=== PATIENT | female | born 1985 | race Caucasian/White ===

== ENCOUNTER 2018-09-18 14:03 | Emergency (ER) | payer OTHER ==
[~2018-09-18 14:03] MED LIST: ISOVUE-370 76%-LOCM 1 ML ONE
[2018-09-18 15:16] LABS: Bilirubin Negative (Negative); Blood, Urine Negative (Negative); Clarity Clear (Clear); Glucose, Urine (Dipstick) Normal (Negative); Leukocyte 250 Leu/uL (Negative); Nitrite Negative (Negative); Protein, Urine (Dipstick) 20 mg/dL (Neg-Trace); Urobilinogen Normal mg/dL (Less than 2)
[2018-09-18 15:26] LABS: Bacteria/HPF 1+ HPF (None Seen)
[2018-09-18 15:44] LABS: Pregnancy Test - Urine (BHCG) Negative (Negative); Pregu Control Background? CLEAR/WHITE (CLR/WHITE); Pregu Control Bar Appear? YES (CONTROL BAR); Specific Gravity 1.029 (1.002-1.036)
[2018-09-18] MEDS ORDERED: Ondansetron PF 4 MG/2 ML Vial ONE (15:50)
[2018-09-18 15:57] LABS: #Lymphocytes 1.4 thou/uL (1.20-3.40); #Monocytes 0.4 thou/uL (0.11-0.59); %Basophils 0.3 % (0.0-1.0); %Eosinophils 0.8 % (0.0-10.0); %Lymphocytes 29.2 % (21.0-51.0); %Monocytes 7.9 % (0.0-10.0); %Neutrophils 61.8 % (42.0-75.0); Hemoglobin 11.7 g/dL (12.0-16.0); Mean Corpuscular HGB CONC 34.2 g/dL (32.0-36.0); Mean Corpuscular Hemoglobin 33.2 pg (27.0-31.0); Mean Platelet Volume 7.1 fL (7.4-10.4); Platelet Count 287 thou/uL (130-400); RBC Distribution Width 11.2 % (11.5-14.5); Red Blood Cell (RBC) Count 3.54 mill/uL (4.20-5.40); White Blood Cell (WBC) Count 4.8 thou/uL (4.8-10.8)
[2018-09-18 16:20] LABS: ALT (SGPT) 10 U/L (8-55); AST (SGOT) 19 U/L (5-34); Albumin 4.3 g/dL (3.5-5.0); Alkaline Phosphatase 50 U/L (40-150); Anion Gap 13 mmol/L (10-20); BUN (Urea Nitrogen) 19 mg/dL (7.0-18.7); Bilirubin, Total 0.3 mg/dL (0.2-1.2); Calc. Creatinine Clearance 0 mL/min (70-130); Calcium 9.4 mg/dL (7.8-10.44); Carbon Dioxide 24 mmol/L (22-29); Chloride 104 mmol/L (98-107); Estimated GFR-MDRD 78; Globulin 2.9 g/dL (2.4-3.5); Glucose 150 mg/dL (70-105); Potassium 4.1 mmol/L (3.5-5.1); Protein, Total 7.2 g/dL (6.0-8.3); Sodium 137 mmol/L (136-145)
[2018-09-18] MEDS ORDERED: diphenhydrAMINE 50 MG/ML VIAL ONE (17:13)
--- NOTE | 2018-09-18 17:29 | CT ---
CT ABDOMEN AND PELVIS WITH CONTRAST: HISTORY: Abdominal pain with nausea, diarrhea, and a decreased appetite for three days. COMPARISON: None. TECHNIQUE: Multiple contiguous axial images were obtained in a CT of the abdomen and pelvis with contrast. Janis nal reformats were performed. FINDINGS: The patient is status post cholecystectomy. The liver, kidneys, adrenal glands, spleen, and pancreas are unremarkable. No free air, free fluid, or stranding changes are seen in the abdomen or pelvis. The large and small bowel are unremarkable. The reproductive organs are unremarkable. The appendix is normal. No abdominal or pelvic lymphadenopathy is seen. The osseous structures, the visualized inferior thorax, and the abdominal wall soft tissues are unrem arkable. IMPRESSION: No evidence of acute intraabdominal/pelvic abnormality. POS: [facility]
== END 2018-09-18 18:51 | disposition home or self-care (01) ==
LOC: ERS 14:03
DX: R10.31 Right lower quadrant pain (principal); R10.32 Left lower quadrant pain; R19.7 Diarrhea, unspecified; R11.0 Nausea; E10.9 Type 1 diabetes mellitus without complications; G43.909 Migraine, unspecified, not intractable, without status migrainosus; F41.9 Anxiety disorder, unspecified; Z79.899 Other long term (current) drug therapy; Z79.4 Long term (current) use of insulin
CPT/HCPCS: 74177; 80053; 81003; 81015; 81025; 84443; 85025; 96361; 96365; 96372; 96375; J0500; J0780; J1200; J2405; J3490; Q9966

== ENCOUNTER 2019-01-01 15:50 | Emergency (ER) | payer OTHER ==
--- NOTE | 2019-01-01 16:21 | RAD ---
XR Hand Rt 3 View STANDARD: 01/01/2019 3:57 PM CLINICAL INDICATION: Blunt trauma to right hand while moving equipment. COMPARISON: None. FINDINGS: Bones: No acute osseous abnormality. Joints: Joint spaces are preserved. Soft Tissue: Soft tissues are normal appearing. IMPRESSION: No acute osseous abnormality..
== END 2019-01-01 16:37 | disposition home or self-care (01) ==
LOC: ERS 15:50
DX: S60.221A Contusion of right hand, initial encounter (principal); E10.9 Type 1 diabetes mellitus without complications; F41.9 Anxiety disorder, unspecified; Z79.899 Other long term (current) drug therapy; W22.8XXA Striking against or struck by other objects, initial encounter

== ENCOUNTER 2019-02-03 11:48 | Emergency (ER) | payer OTHER, SELFPAY ==
[~2019-02-03 11:48] MED LIST changes: -ISOVUE-370 76%-LOCM 1 ML ONE; +Iopamidol 370 76% 50 ML VIAL FS ONE; +Iopamidol-370 76% 500 ML 1 ML ONE
[2019-02-03] MEDS ORDERED: Ondansetron ODT 4 MG TAB ONE (11:54)
[2019-02-03 13:14] LABS: Bacteria/HPF 2+ HPF (None Seen); Bilirubin Negative (Negative); Blood, Urine Negative (Negative); Clarity Clear (Clear); Glucose, Urine (Dipstick) Normal (Negative); Leukocyte 75 Leu/uL (Negative); Mucous/LPF Rare LPF (<2+); Nitrite Negative (Negative); Protein, Urine (Dipstick) Negative (Neg-Trace); RBC/HPF 0-3 HPF (0-3); Urobilinogen Normal mg/dL (Less than 2); WBC/HPF 0-3 HPF (0-3)
[2019-02-03 13:16] LABS: Pregnancy Test - Urine (BHCG) Negative (Negative); Pregu Control Background? CLEAR/WHITE (CLR/WHITE); Pregu Control Bar Appear? YES (CONTROL BAR); Specific Gravity 1.017 (1.002-1.036)
[2019-02-03] MEDS ORDERED: Meclizine HCl 25 MG TAB ONE (13:27)
[2019-02-03 13:31] LABS: #Basophils 0.1 thou/uL (0.0-0.2); #Lymphocytes 1.3 thou/uL (1.20-3.40); #Monocytes 0.3 thou/uL (0.11-0.59); #Neutrophils 6.7 thou/uL (1.40-6.50); %Basophils 0.9 % (0.0-1.0); %Eosinophils 0.6 % (0.0-10.0); %Lymphocytes 15.2 % (21.0-51.0); %Monocytes 3.5 % (0.0-10.0); %Neutrophils 79.8 % (42.0-75.0); Mean Corpuscular HGB CONC 34.4 g/dL (32.0-36.0); Mean Corpuscular Hemoglobin 32.1 pg (27.0-31.0); Mean Corpuscular Volume 93.2 fL (78.0-98.0); Mean Platelet Volume 6.4 fL (7.4-10.4); Platelet Count 334 thou/uL (130-400); Red Blood Cell (RBC) Count 4.35 mill/uL (4.20-5.40); White Blood Cell (WBC) Count 8.4 thou/uL (4.8-10.8)
[2019-02-03 13:52] LABS: ALT (SGPT) 12 U/L (8-55); AST (SGOT) 18 U/L (5-34); Alkaline Phosphatase 62 U/L (40-110); Anion Gap 13 mmol/L (10-20); BUN (Urea Nitrogen) 16 mg/dL (7.0-18.7); Bilirubin, Total 0.8 mg/dL (0.2-1.2); Calc. Creatinine Clearance 0 mL/min (70-130); Calcium 9.9 mg/dL (7.8-10.44); Carbon Dioxide 26 mmol/L (22-29); Chloride 101 mmol/L (98-107); Estimated GFR-MDRD 84; Globulin 3.4 g/dL (2.4-3.5); Glucose 86 mg/dL (70-105); Lipase 32 U/L (8-78); Protein, Total 8.4 g/dL (6.0-8.3); Sodium 136 mmol/L (136-145)
[2019-02-03] MEDS ORDERED: Hydrocortisone Sod Succ/PF 100 mg/2 ml Vial ONE (14:07)
--- NOTE | 2019-02-03 14:46 | CT ---
CT ABDOMEN AND PELVIS WITH ORAL AND IV CONTRAST: HISTORY: Sharp left-sided abdominal pain. COMPARISON: 09/18/2018. FINDINGS: The lung bases are clear. The patient is post cholecystectomy. The liver, spleen, pancreas, adrenal glands, and kidneys are normal. No free air, free fluid, or lymphadenopathy is seen in the abdomen o r pelvis. The small bowel loops are not abnormally dilated. A normal-appearing appendix is seen. U terus and ovaries are present. There is mild sigmoid diverticulosis. IMPRESSION: No evidence of acute process. POS: [facility]
== END 2019-02-03 16:33 | disposition home or self-care (01) ==
LOC: ERS 11:48
DX: R10.9 Unspecified abdominal pain (principal); R11.2 Nausea with vomiting, unspecified; E11.9 Type 2 diabetes mellitus without complications; G43.909 Migraine, unspecified, not intractable, without status migrainosus; F41.9 Anxiety disorder, unspecified; Z79.4 Long term (current) use of insulin; Z79.899 Other long term (current) drug therapy
CPT/HCPCS: 74177; 80053; 81003; 81015; 81025; 83690; 85025; 96360; 96361; J1720; J8597; Q0162; Q9967

== ENCOUNTER 2019-03-04 11:59 | Outpatient (CLI) | payer OTHER ==
--- NOTE | 2019-03-04 12:23 | RAD ---
2 views of the lumbar spine: 03/04/2019 COMPARISON: None HISTORY: Diarrhea, low back pain, right upper quadrant pain FINDINGS: Clips are noted in the right upper quadrant. Suture line overlies the medial aspect of the right lower quadrant. 5 lumbar type vertebral bodies are present with intact pedicles on frontal imaging. Lateral exam demo nstrates normal vertebral body height and alignment. No acute osseous abnormality. IMPRESSION: No acute osseous abnormality.
== END 2019-03-04 12:00 | disposition home or self-care (01) ==
LOC: BICRAD 11:59
PROVIDERS: ATTEND Family Medicine
DX: M54.5 Low back pain (principal)
CPT/HCPCS: 72100

== ENCOUNTER 2019-03-13 10:15 | Day surgery (SDC) | payer OTHER ==
[2019-03-12 13:14] VITALS: BMI 24.2
[~2019-03-13 10:15] MED LIST changes: -Iopamidol 370 76% 50 ML VIAL FS ONE; -Iopamidol-370 76% 500 ML 1 ML ONE; +PROPOFOL 200 MG/20 ML VIAL ONE
[2019-03-13] MEDS ORDERED: Ketorolac Tromethamine 30 MG/ML VIAL ONE (13:34)
[2019-03-13 14:18] LABS: #Eosinphils 0.1 thou/uL (0.0-0.7); #Lymphocytes 2.6 thou/uL (1.20-3.40); #Monocytes 0.5 thou/uL (0.11-0.59); #Neutrophils 3.3 thou/uL (1.40-6.50); %Basophils 0.2 % (0.0-1.0); %Eosinophils 0.9 % (0.0-10.0); %Monocytes 7.1 % (0.0-10.0); %Neutrophils 51.8 % (42.0-75.0); Hemoglobin 12.8 g/dL (12.0-16.0); Mean Corpuscular HGB CONC 33.7 g/dL (32.0-36.0); Mean Corpuscular Hemoglobin 31.6 pg (27.0-31.0); Mean Corpuscular Volume 93.9 fL (78.0-98.0); Mean Platelet Volume 7.2 fL (7.4-10.4); Platelet Count 267 thou/uL (130-400); RBC Distribution Width 11.3 % (11.5-14.5); Red Blood Cell (RBC) Count 4.05 mill/uL (4.20-5.40); White Blood Cell (WBC) Count 6.4 thou/uL (4.8-10.8)
[2019-03-13 14:47] LABS: ALT (SGPT) 11 U/L (8-55); AST (SGOT) 16 U/L (5-34); Alkaline Phosphatase 41 U/L (40-110); Anion Gap 12 mmol/L (10-20); BUN (Urea Nitrogen) 11 mg/dL (7.0-18.7); Bilirubin, Total 0.4 mg/dL (0.2-1.2); Calc. Creatinine Clearance 111 mL/min (70-130); Calcium 8.8 mg/dL (7.8-10.44); Carbon Dioxide 28 mmol/L (22-29); Chloride 102 mmol/L (98-107); Estimated GFR-MDRD 86; Globulin 2.9 g/dL (2.4-3.5); Glucose 86 mg/dL (70-105); Lipase 31 U/L (8-78); Potassium 3.8 mmol/L (3.5-5.1); Protein, Total 6.9 g/dL (6.0-8.3); Sodium 138 mmol/L (136-145)
--- NOTE | 2019-03-13 16:38 | OP ---
DATE OF PROCEDURE: 03/13/2019 PROCEDURES PERFORMED: 1. Esophagogastroduodenoscopy. 2. Ileocolonoscopy. PREMEDICATION: Given by Anesthesiology Department. PREPROCEDURE DIAGNOSES: 1. Severe right-sided abdominal pain, negative CT. 2. Recurrent nausea, vomiting, and a history of diarrhea. POSTPROCEDURE DIAGNOSES: 1. Normal upper endoscopy with changes of duodenojejunostomy. 2. Normal ileum and colon exam. DESCRIPTION OF PROCEDURE: Written consents were obtained prior to procedure. After adequate sedation, the forward-viewing endoscope was advanced down the stomach under direct vision. The pylorus was patent. The endoscope was advanced into the duodenal bulb. In the post-bulbar section, an anastomosis was noted with two lumens consistent with prior duodenojejunostomy. Both limbs were explored and appeared normal. The duodenal bulb appeared normal. Pylorus was patent. The gastric antrum, body, fundus, and cardia all appeared normal. Retroflexion did not show any abnormality. The GE junction was located approximately 40 cm from the incisors. The esophagus appeared normal. The patient was then repositioned for colonoscopy. Digital exam performed was normal. Endoscope was advanced to the cecum. The quality of the bowel prep was good. The distal ileum was intubated and appeared normal. The ileocecal valve and appendiceal orifice were visualized, appeared normal. The cecum, ascending colon, hepatic flexure, transverse colon, splenic flexure, descending colon, and rectosigmoid colon all appeared normal. Retroflexion was normal. ASSESSMENT: 1. Status post duodenal jejunostomy, otherwise normal upper endoscopy. 2. Normal ileum in colon exam. PLAN: We will obtain MRCP to evaluate for any choledocholithiasis as the patient has previous cholecystectomy. Job ID: [id number]
== END 2019-03-13 14:34 | disposition home or self-care (01) ==
LOC: SDC 10:15
PROVIDERS: ATTEND Internal Medicine Gastroenterology
PROC: 0DJ08ZZ Inspection of Upper Intestinal Tract, Via Natural or Artificial Opening Endoscopic (ICD-10-PCS; principal; 2019-03-13)
PROC: 0DJD8ZZ Inspection of Lower Intestinal Tract, Via Natural or Artificial Opening Endoscopic (ICD-10-PCS; principal; 2019-03-13)
DX: R10.9 Unspecified abdominal pain (principal); R19.7 Diarrhea, unspecified; R63.4 Abnormal weight loss; R11.2 Nausea with vomiting, unspecified; E11.9 Type 2 diabetes mellitus without complications; E07.9 Disorder of thyroid, unspecified; Z68.24 Body mass index [BMI] 24.0-24.9, adult; Z79.899 Other long term (current) drug therapy; Z88.8 Allergy status to other drugs, medicaments and biological substances; Z91.040 Latex allergy status
CPT/HCPCS: 36415; 80053; 83690; 85025; J1885; J2704

== ENCOUNTER 2019-03-27 07:48 | Outpatient (CLI) | payer OTHER ==
--- NOTE | 2019-03-27 09:01 | MRI ---
MRI Abdomen W WO Con HISTORY: Right upper quadrant pain COMPARISON: CT scan of 02/03/2019 FINDINGS: The patient is post cholecystectomy. No abnormal biliary ductal dilatation is seen. No filling defect s are seen in the biliary tracts to suggest choledocholithiasis. The common duct measures 6 cm in diameter. The liver demonstrates signal dropout on the out of phase images consistent with fatty infiltration. No hepatic mass is seen. The spleen, pancreas, adrenal glands and kidneys appear normal. No free fluid or lymphadenopathy is noted. Bone marrow signal is normal. IMPRESSION: 1. Fatty liver 2. Status post cholecystectomy without evidence of choledocholithiasis or abnormal biliary ductal dil atation.
[2019-03-27] MEDS ORDERED: Magnevist 469MG/ML 20 ML VIAL ONE (13:23)
== END 2019-03-27 07:49 | disposition home or self-care (01) ==
LOC: BICMRI 07:48
PROVIDERS: ATTEND Internal Medicine Gastroenterology
DX: R10.11 Right upper quadrant pain (principal); K76.0 Fatty (change of) liver, not elsewhere classified; Z90.49 Acquired absence of other specified parts of digestive tract
CPT/HCPCS: 74183; 82565; A9579

== ENCOUNTER 2019-04-01 10:43 | Emergency (ER) | payer OTHER ==
[2019-04-01] MEDS ORDERED: Ketorolac Tromethamine 60 MG/2 ML VIAL ONE (11:37)
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
== END 2019-04-01 13:01 | disposition home or self-care (01) ==
LOC: ERS 10:43
DX: S13.9XXA Sprain of joints and ligaments of unspecified parts of neck, initial encounter (principal); S43.402A Unspecified sprain of left shoulder joint, initial encounter; S43.401A Unspecified sprain of right shoulder joint, initial encounter; E11.9 Type 2 diabetes mellitus without complications; F41.9 Anxiety disorder, unspecified; G43.909 Migraine, unspecified, not intractable, without status migrainosus; Z79.899 Other long term (current) drug therapy; V89.2XXA Person injured in unspecified motor-vehicle accident, traffic, initial encounter
CPT/HCPCS: 70450; 72125; 96372; J1885

== ENCOUNTER 2019-06-10 10:18 | Outpatient (CLI) | payer OTHER ==
--- NOTE | 2019-06-10 11:32 | MRI ---
Exam: MRI cervical spine without contrast HISTORY: Cervical radiculopathy. COMPARISON: None FINDINGS: Intrinsic T1 hypointensity with associated T2 and STIR hyperintensity at the C4 and C5 level likely representing atypical hemangiomas. Otherwise, cervical vertebral bodies have an appropriate T1 marrow signal intensity. No fracture. No significant STIR hyperintensity to suggest vertebral body ed vane or ligamentous injury. Visualized brain parenchyma, cervicomedullary junction, cervical cord and the upper thoracic cord hav e a normal size and signal intensity. C2-C3: No significant central canal stenosis. Right neural foramen is patent. Mild left foraminal dilip rowing due to uncovertebral hypertrophy. C3-C4: Small left paracentral disc herniation. Nevertheless, no significant central canal stenosis. R ight neural foramen is patent. Minimal left foraminal narrowing due to uncovertebral hypertrophy. C4-C5: No posterior disc abnormality. No significant central canal stenosis or significant neural for aminal narrowing. C5-C6: Broad-based disc bulge which minimally contacts the thecal sac. No significant central canal s tenosis. Bilaterally, neural foramina are patent. C6-C7: Broad-based disc bulge which minimally contacts the thecal sac. No significant central canal s tenosis or significant neural foraminal narrowing. C7-T1: No significant central canal stenosis or significant neural foraminal narrowing. IMPRESSION: 1. No significant central canal stenosis or significant neural foraminal narrowing throughout the cer vical spine. 2. Intrinsic T1 hypointensity with associated T2 hyperintense/STIR hyperintensity at the C4-C5 level. Subtle sclerosis is noted on a CT performed in March 2019. Findings may represent atypical hemangioma. Transcribed Date/Time: 06/10/2019 11:49 AM
--- NOTE | 2019-06-10 12:13 | RAD ---
CERVICAL SPINE 4 VIEWS INCLUDING FLEXION AND EXTENSION LATERAL VIEWS: Date: 06/10/2019 HISTORY: Cervical radiculopathy. FINDINGS: There is no evidence for abnormal anterior retrolisthesis. No abnormal translation between flexion an d extension. No prevertebral soft tissue swelling. Mild facet arthrosis changes. IMPRESSION: 1. Unremarkable cervical spine. 2. No evidence for abnormal translation between flexion and extension. POS: [facility]
== END 2019-06-10 10:19 | disposition home or self-care (01) ==
LOC: BICMRI 10:18
PROVIDERS: ATTEND Neurological Surgery
DX: M54.12 Radiculopathy, cervical region (principal); G95.89 Other specified diseases of spinal cord
CPT/HCPCS: 72050; 72141

== ENCOUNTER 2019-06-19 12:36 | Outpatient (CLI) | payer OTHER ==
[~2019-06-19 12:36] MED LIST changes: +Magnevist 469MG/ML 20 ML VIAL ONE; -PROPOFOL 200 MG/20 ML VIAL ONE
[2019-06-19] MEDS ORDERED: EPINEPHrine 1 MG/ML AMP ONE (13:30)
[2019-06-19] MEDS ORDERED: Lidocaine 1% PF 10 ML AMP ONE (13:30)
[2019-06-19] MEDS ORDERED: Gadobenate Dimeglumine 529 MG/1 ML (20ML VIAL) ONE (13:30)
[2019-06-19] MEDS ORDERED: Iopamidol 300 61% 30 ML VIAL ONE (13:30)
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
--- NOTE | 2019-06-19 15:37 | MRI ---
POSTARTHROGRAM MRI OF RIGHT SHOULDER PERFORMED WITH CONTRAST: 06/19/19 HISTORY: Right shoulder pain. Contrast injected by Dr. Cronin with good opacification of the joint space. The AC joint is unremarkable. The acromion is slightly laterally downsloping. The supra as well as infraspinatus tendon are intact. Subscapularis muscle and tendon are normal in appearance and the biceps tendon is normal in position within the bicipital groove. The bicipital labral complex appears unremarkable specifically I do not see a SLAP type tear. Inferior glenohumeral ligamentous and labral complexes unremarkable. IMPRESSION: No evidence of rotator cuff or labral injury. POS: [facility]
== END 2019-06-19 12:37 | disposition home or self-care (01) ==
LOC: RAD 12:36
PROVIDERS: ATTEND Orthopaedic Surgery
DX: M25.311 Other instability, right shoulder (principal)
CPT/HCPCS: 23350; A9577; A9579; J0171; J2001; Q9967

== ENCOUNTER 2019-08-15 08:57 | Outpatient (CLI) | payer OTHER ==
[2019-08-15] MEDS ORDERED: Iopamidol-370 76% 500 ML 1 ML ONE (10:03)
--- NOTE | 2019-08-15 10:19 | CT ---
CT Abdomen Pelvis W WO con: 08/15/2019 12:00 AM CLINICAL INFORMATION: Severe lower pelvic pain the rates to the right side of the back COMPARISON: None. TECHNIQUE: Multiple contiguous axial images were obtained and a CT of the abdomen and pelvis without and with IV contrast. Postcontrast images were obtained in the nephrographic and excretory phases. Oral contrast was administered. Coronal and sagittal reformats were performed. FINDINGS: Lower Chest: within normal limits. Abdomen: Liver: within normal limits. Bile Ducts: Normal caliber. Gallbladder: Removed Pancreas: within normal limits. Spleen: within normal limits. Adrenals: within normal limits. Kidneys: within normal limits. No renal calculi. Pelvis: Reproductive Organs: No pelvic masses. Ureters: within normal limits. Bladder: within normal limits. Peritoneum: No ascites or free air, no fluid collection. Bowel: Normal caliber. Normal appendix. Mesentery and Retroperitoneum: No enlarged mesenteric or retroperitoneal lymph nodes. Vessels: Normal. Abdominal Wall: within normal limits. Bones: Within normal limits IMPRESSION: No evidence of acute intraabdominal or pelvic abnormality.
== END 2019-08-15 08:58 | disposition home or self-care (01) ==
LOC: BICCT 08:57
PROVIDERS: ATTEND Obstetrics & Gynecology
DX: R10.2 Pelvic and perineal pain (principal)
CPT/HCPCS: 74178; Q9967

== ENCOUNTER 2019-08-16 13:18 | Emergency (ER) | payer OTHER ==
[2019-08-16] MEDS ORDERED: Naproxen 500 MG TAB ONE (14:43)
[2019-08-16] MEDS ORDERED: Ondansetron ODT 8 MG TAB ONE (14:43)
--- NOTE | 2019-08-16 14:43 | RAD ---
CERVICAL SPINE: 08/16/19 HISTORY: Fall with injury. Cervical vertebrae maintain normal height and alignment. Disc spaces are preserved. Posterior element s appear normally aligned. IMPRESSION: Unremarkable cervical spine. POS: [facility]
--- NOTE | 2019-08-16 14:45 | RAD ---
LEFT SHOULDER: 08/16/19 Three views. HISTORY: Fall. No evidence of fracture or dislocation. AC joint normally aligned. IMPRESSION: No acute findings. POS: [facility]
== END 2019-08-16 15:26 | disposition home or self-care (01) ==
LOC: ERS 13:18
DX: S46.912A Strain of unspecified muscle, fascia and tendon at shoulder and upper arm level, left arm, initial encounter (principal); E11.9 Type 2 diabetes mellitus without complications; G43.909 Migraine, unspecified, not intractable, without status migrainosus; F41.9 Anxiety disorder, unspecified; Z79.899 Other long term (current) drug therapy; Z79.84 Long term (current) use of oral hypoglycemic drugs; W19.XXXA Unspecified fall, initial encounter
CPT/HCPCS: 72040; Q0162

== ENCOUNTER 2019-11-03 06:11 | Outpatient (CLI) | payer OTHER ==
[2019-11-03 19:04] LABS: BHCG - Serum Negative (NEGATIVE); Pregs Control Background? CLEAR/WHITE (CLR/WHITE); Pregs Control Bar Appear? YES (CONTROL BAR)
== END 2019-11-03 06:12 | disposition home or self-care (01) ==
LOC: LABBT 06:11
PROVIDERS: ATTEND Obstetrics & Gynecology
DX: Z01.812 Encounter for preprocedural laboratory examination (principal); R10.2 Pelvic and perineal pain; Q52.3 Imperforate hymen
CPT/HCPCS: 84703

== ENCOUNTER 2019-11-06 09:39 | Day surgery (SDC) | payer OTHER ==
[2019-11-03 14:17] LABS: Hemoglobin 12.7 g/dL (12.0-16.0); Mean Corpuscular HGB CONC 33.5 g/dL (32.0-36.0); Mean Corpuscular Hemoglobin 33.4 pg (27.0-31.0); Mean Corpuscular Volume 99.8 fL (78.0-98.0); Mean Platelet Volume 7.4 fL (7.4-10.4); Platelet Count 306 thou/uL (130-400); RBC Distribution Width 11.6 % (11.5-14.5); Red Blood Cell (RBC) Count 3.81 mill/uL (4.20-5.40); White Blood Cell (WBC) Count 7.5 thou/uL (4.8-10.8)
[2019-11-04 09:54] VITALS: BMI 28.8
[2019-11-04 13:03] LABS: SARS-CoV-2 MS2 Positive; SARS-CoV-2 N Gene Negative; SARS-CoV-2 S Gene Negative; SARS-CoV-2 by NAA Not Detected (NotDetected); SARS-CoV-2 orf1ab Negative
[2019-11-06] MEDS ORDERED: Dexamethasone 20 MG/5 ML VIAL ONE (10:37)
[2019-11-06] MEDS ORDERED: Ondansetron PF 4 MG/2 ML Vial ONE (10:37)
[2019-11-06] MEDS ORDERED: Rocuronium Bromide 10 MG/ML (10ML VIAL) ONE (10:37)
[2019-11-06] MEDS ORDERED: Lidocaine 1% PF 5 ML VIAL ONE (10:37)
[2019-11-06] MEDS ORDERED: PROPOFOL 200 MG/20 ML VIAL ONE (10:37)
[2019-11-06] MEDS ORDERED: Glycopyrrolate 0.2 MG/ML 5 ML SYRINGE ONE (10:37)
[2019-11-06] MEDS ORDERED: Famotidine/PF 20 mg/2ml Vial ONE (10:43)
[2019-11-06] MEDS ORDERED: Gabapentin 300 MG CAP ONE (10:43)
[2019-11-06] MEDS ORDERED: CeleCOXIB 100 MG CAP ONE (10:43)
[2019-11-06] MEDS ORDERED: Lidocaine 1% w/Epinephrine 1:100K 20 ML VIAL ONE (11:46)
[2019-11-06] MEDS ORDERED: Bupivacaine PF 0.5% 30 ML VIAL ONE (11:46)
[2019-11-06] MEDS ORDERED: Fentanyl 100 MCG/2 ML VIAL ONE ×2 (11:50→13:49)
[2019-11-06] MEDS ORDERED: Midazolam HCl 2 mg/2 ml Vial ONE (11:57)
[2019-11-06] MEDS ORDERED: Bacitracin Zinc Ointment 30 gm TUBE ONE (13:17)
--- NOTE | 2019-11-06 17:57 | OP ---
DATE OF PROCEDURE: 11/06/2019 PREOPERATIVE DIAGNOSES: 1. Chronic pelvic pain. 2. Imperforate hymen. PROCEDURES PERFORMED: 1. Diagnostic laparoscopy with lysis of adhesions. 2. Hymenectomy. WOOL DYER: Sallie Bell PA-C. ANESTHESIA: GETA. COMPLICATIONS: None. ESTIMATED BLOOD LOSS: Less than 20 mL. OPERATIVE FINDINGS: 1. Imperforate hymen with no vaginal opening noted on external exam, otherwise normal external genitalia. 2. Normal-appearing vagina and cervix noted after hymenectomy complete. 3. Normal-appearing uterus, tubes, and ovaries bilaterally. 4. Normal appearing follicular cyst on the left ovary. 5. Filmy adhesions between the left adnexa and fallopian tube to the descending colon. 6. Normal-appearing colon and omentum. 7. Normal-appearing liver edge. PROCEDURE IN DETAIL: The patient was taken back to the OR with IV fluids running. When she was in the OR, general anesthesia was obtained and the patient was placed in low dorsal lithotomy position with her arms tucked at her side. The abdomen and external vagina were prepped and draped in normal fashion for gynecologic laparoscopy and a Villasenor catheter was placed into the bladder using sterile technique. The surgeon was gowned and gloved and attention was turned to the external genitalia for exam under anesthesia of the vaginal opening. No obvious vaginal opening could be appreciated on visual exam. An Allis clamp was used to grasp the imperforate hymen posteriorly, and a scalpel was used to make a small incision, immediately the normal-appearing vagina and vaginal canal was visualized through this opening. This opening was easily dissected and stretched to allow for natural opening of approximately 2 to 3 cm. A virginal speculum was placed into the vagina and normal vagina and cervix were visualized. A small area of bleeding just below the urethra was controlled with a [id number] Vicryl suture at the vaginal mucosa. Two additional interrupted sutures were placed inferiorly at the junction of the vagina to the hymenal ring. With hemostasis of the vagina noted, a small sponge stick was created and placed into the vagina for manipulation during the laparoscopic portion of the case. The surgeon's gloves were changed and attention was turned to the laparoscopic portion of procedure. Beginning at the umbilicus, local anesthesia was placed in the skin. A Veress needle was placed through a 5-mm skin incision; however, low pressure was not read and concern for potential adhesive disease below the umbilicus was considered. For this reason, attention was turned to the left upper quadrant for left upper quadrant entry. Local anesthesia was placed underneath the skin. A 5 mm skin incision was made and a 5-mm optic trocar was placed under direct visualization through the skin, the abdominal wall and into the peritoneal cavity. This was completed under direct visualization without difficulty. The abdomen then insufflated without difficulty. The laparoscope was used to look up at the umbilical incision with no evidence of adhesions here or trauma to the abdominal wall or peritoneum. The 5 mm trocar was then placed under direct visualization through the umbilical port site without difficulty. Next, the left lower quadrant 5 mm port was placed using similar technique. A blunt probe was used to manipulate the bowel and the adnexa bilaterally with normal findings in the pelvis and abdomen with the exception of filmy adhesions between the left ovary and the descending colon. Laparoscopic scissors were used to incise these filmy adhesions allowing more natural movement of the left adnexa and the descending colon. After the laparoscopy was complete, the instrument counts were correct. No areas of bleeding were noted within the abdomen or pelvis. All instruments were removed and gas was released from the abdomen. The 3 skin incisions were closed with Monocryl suture and dressed with Dermabond dressing. The vagina was inspected again at the end of the case. A layer of bacitracin ointment was placed at the surgical site. Minimal but anticipated amount of light vaginal bleeding was noted. The patient tolerated the procedure well. She was extubated and transferred to the recovery room in good condition. Job ID: [id number]
== END 2019-11-06 17:45 | disposition home or self-care (01) ==
LOC: SDC 09:39
PROVIDERS: ATTEND Obstetrics & Gynecology
PROC: 0UBK7ZZ Excision of Hymen, Via Natural or Artificial Opening (ICD-10-PCS; principal; 2019-11-06)
PROC: 0UN64ZZ Release Left Fallopian Tube, Percutaneous Endoscopic Approach (ICD-10-PCS; principal; 2019-11-06)
DX: Q52.3 Imperforate hymen (principal); K66.0 Peritoneal adhesions (postprocedural) (postinfection); G89.29 Other chronic pain; R10.2 Pelvic and perineal pain; G43.909 Migraine, unspecified, not intractable, without status migrainosus; E06.3 Autoimmune thyroiditis; E11.9 Type 2 diabetes mellitus without complications; Z79.84 Long term (current) use of oral hypoglycemic drugs; Z79.899 Other long term (current) drug therapy; Z88.8 Allergy status to other drugs, medicaments and biological substances; Z91.040 Latex allergy status; Z01.812 Encounter for preprocedural laboratory examination; Z20.828 Contact with and (suspected) exposure to other viral communicable diseases
CPT/HCPCS: 36416; 85027; 86850; 86900; 86901; 87635; J0690; J1100; J2250; J2405; J2704; J3010; S0020; S0028; U0003

== ENCOUNTER 2020-01-19 19:00 | Outpatient (CLI) | payer OTHER | END 2020-01-19 19:01 | disposition home or self-care (01) | LOC: SLEEPLAB 19:00 | PROVIDERS: ATTEND Family Medicine | DX: G47.00 Insomnia, unspecified (principal); G47.33 Obstructive sleep apnea (adult) (pediatric); R53.83 Other fatigue; G47.10 Hypersomnia, unspecified; F51.5 Nightmare disorder | CPT/HCPCS: 95810 ==

== ENCOUNTER 2020-04-30 08:34 | Inpatient (IN) | payer OTHER ==
[2020-04-30 09:20] LABS: #Lymphocytes 0.9 thou/uL (1.20-3.40); #Monocytes 0.1 thou/uL (0.11-0.59); #Neutrophils 6.8 thou/uL (1.40-6.50); %Eosinophils 0.5 % (0.0-10.0); %Lymphocytes 11.7 % (21.0-51.0); %Monocytes 1.3 % (0.0-10.0); %Neutrophils 86.5 % (42.0-75.0); Hemoglobin 14.5 g/dL (12.0-16.0); Mean Corpuscular HGB CONC 34.5 g/dL (32.0-36.0); Mean Corpuscular Hemoglobin 33.8 pg (27.0-31.0); Platelet Count 374 thou/uL (130-400); RBC Distribution Width 11.6 % (11.5-14.5); Red Blood Cell (RBC) Count 4.29 mill/uL (4.20-5.40); White Blood Cell (WBC) Count 7.9 thou/uL (4.8-10.8)
[2020-04-30] MEDS ORDERED: Ondansetron PF 4 MG/2 ML Vial ONE (09:38)
[2020-04-30 09:45] LABS: ALT (SGPT) 12 U/L (8-55); AST (SGOT) 18 U/L (5-34); Albumin 4.4 g/dL (3.5-5.0); Alkaline Phosphatase 59 U/L (40-110); Anion Gap 19 mmol/L (10-20); BUN (Urea Nitrogen) 25 mg/dL (7.0-18.7); Bilirubin, Total 0.4 mg/dL (0.2-1.2); Calc. Creatinine Clearance 0 mL/min (70-130); Calcium 9.4 mg/dL (7.8-10.44); Carbon Dioxide 17 mmol/L (22-29); Chloride 101 mmol/L (98-107); Globulin 3.8 g/dL (2.4-3.5); Glucose 196 mg/dL (70-105); Potassium 4.3 mmol/L (3.5-5.1); Protein, Total 8.2 g/dL (6.0-8.3); Sodium 133 mmol/L (136-145)
[2020-04-30 09:56] LABS: BHCG - Serum Negative (NEGATIVE); Pregs Control Background? CLEAR/WHITE (CLR/WHITE); Pregs Control Bar Appear? YES (CONTROL BAR)
[2020-04-30] MEDS ORDERED: Ketorolac Tromethamine 30 MG/ML VIAL ONE (10:07)
[2020-04-30] MEDS ORDERED: Meclizine HCl 25 MG TAB ONE (10:07)
[2020-04-30] MEDS ORDERED: Lorazepam 2 MG/ML VIAL ONE (12:20)
[2020-04-30 12:55] LABS: Bilirubin Negative (Negative); Blood, Urine Negative (Negative); Clarity Clear (Clear); Glucose, Urine (Dipstick) Greater than 1000 mg/dL (Negative); Ketone, Urine 10 mg/dL (Negative); Leukocyte Negative Leu/uL (Negative); Nitrite Negative (Negative); Protein, Urine (Dipstick) Negative (Neg-Trace); Specific Gravity, Urine 1.007 (1.002-1.036); Urobilinogen Normal mg/dL (Less than 2)
[2020-04-30] MEDS ORDERED: HYDROcodone/Acetaminophen 10/325 mg Tablet ONE (13:05)
[2020-04-30] MEDS ORDERED: Guaifenesin DM 100-10/5 ML UDCUP PO PRN (16:22)
[2020-04-30] MEDS ORDERED: Bisacodyl 10 MG SUPP PR PRN (16:22)
[2020-04-30] MEDS ORDERED: Ondansetron PF 4 MG/2 ML Vial IVP PRN (16:22)
[2020-04-30] MEDS ORDERED: Ondansetron ODT 4 MG TAB PO PRN (16:22)
[2020-04-30] MEDS ORDERED: Senokot S 8.6-50 MG TAB PO PRN (16:22)
[2020-04-30] MEDS ORDERED: Calcium Carbonate 500 MG ChewTAB PO PRN (16:22)
[2020-04-30] MEDS ORDERED: Zolpidem Tartrate 5 MG TAB PO PRN (16:22)
[2020-04-30] MEDS ORDERED: Dextrose 5% in Water 1,000 ML IV PRN (16:35)
[2020-04-30] MEDS ORDERED: HumaLOG 300 UNITS/3 ML VIAL SC PRN (16:35)
[2020-04-30] MEDS ORDERED: Dextrose 50% Abboject 50 ML SYRINGE SLOW IVP PRN (16:35)
[2020-04-30 17:56] VITALS: BMI 28.3
[2020-04-30] MEDS: HYDROcodone/Acetaminophen 5/325 mg Tablet PO PRN (19:39)
[2020-04-30] MEDS: Famotidine 20 MG TAB PO SCH (19:39)
[2020-04-30 23:41] LABS: SARS-CoV-2 PCR by NAA Not Detected (NotDetected)
[2020-05-01] MEDS: HYDROcodone/Acetaminophen 5/325 mg Tablet PO PRN ×4 (06:16→23:02)
[2020-05-01 06:28] LABS: #Lymphocytes 3.7 thou/uL (1.20-3.40); #Monocytes 0.4 thou/uL (0.11-0.59); #Neutrophils 3.3 thou/uL (1.40-6.50); %Basophils 0.4 % (0.0-1.0); %Eosinophils 0.4 % (0.0-10.0); %Lymphocytes 49.5 % (21.0-51.0); %Monocytes 5.7 % (0.0-10.0); %Neutrophils 43.9 % (42.0-75.0); Hemoglobin 12.5 g/dL (12.0-16.0); Mean Corpuscular Hemoglobin 34.9 pg (27.0-31.0); Mean Corpuscular Volume 99.8 fL (78.0-98.0); Mean Platelet Volume 7.1 fL (7.4-10.4); Platelet Count 307 thou/uL (130-400); RBC Distribution Width 11.6 % (11.5-14.5); Red Blood Cell (RBC) Count 3.59 mill/uL (4.20-5.40); White Blood Cell (WBC) Count 7.6 thou/uL (4.8-10.8)
[2020-05-01 07:44] LABS: Albumin 3.4 g/dL (3.5-5.0)
[2020-05-01 07:45] LABS: Chloride 105 mmol/L (98-107); Potassium 3.8 mmol/L (3.5-5.1); Sodium 135 mmol/L (136-145)
[2020-05-01 07:46] LABS: Calcium 8.3 mg/dL (7.8-10.44); Glucose 136 mg/dL (70-105)
[2020-05-01 07:47] LABS: Globulin 2.9 g/dL (2.4-3.5); Protein, Total 6.3 g/dL (6.0-8.3)
[2020-05-01 07:48] LABS: Anion Gap 13 mmol/L (10-20); Carbon Dioxide 21 mmol/L (22-29)
[2020-05-01 07:49] LABS: Alkaline Phosphatase 41 U/L (40-110)
[2020-05-01 07:50] LABS: Calc. Creatinine Clearance 117 mL/min (70-130)
[2020-05-01 07:51] LABS: BUN (Urea Nitrogen) 22 mg/dL (7.0-18.7)
[2020-05-01 07:52] LABS: ALT (SGPT) 8 U/L (8-55); AST (SGOT) 13 U/L (5-34); CK (CPK) 66 U/L (29-168)
[2020-05-01] MEDS: Acetaminophen 325 MG TAB PO PRN ×2 (08:53→21:09)
[2020-05-01] MEDS: Famotidine 20 MG TAB PO SCH ×2 (08:54→21:09)
[2020-05-01] MEDS ORDERED: Enoxaparin Sodium 40 MG/0.4 ML SYRINGE SC SCH (09:00)
[2020-05-01] MEDS ORDERED: Iopamidol-370 76% 500 ML 1 ML ONE (11:45)
[2020-05-01 11:46] LABS: Magnesium 1.8 mg/dL (1.6-2.6); Phosphorus 2.7 mg/dL (2.3-4.7)
[2020-05-01] MEDS ORDERED: Magnevist 469MG/ML 20 ML VIAL ONE (11:53)
[2020-05-01 12:18] LABS: Thyroid Stimulating Hormone 2.038 uIU/mL (0.35-4.94)
[2020-05-01] MEDS ORDERED: Cyanocobalamin 1000 MCG/ML VIAL IM SCH (12:30)
[2020-05-01] MEDS ORDERED: Folic Acid 1 MG TAB PO SCH (12:30)
[2020-05-01] MEDS ORDERED: Ondansetron ODT 4 MG TAB PO SCH (13:45)
[2020-05-01 16:40] LABS: Bilirubin, Total 0.8 mg/dL (0.2-1.2)
[2020-05-01] MEDS: HumaLOG 300 UNITS/3 ML VIAL SC PRN (19:00)
[2020-05-01] MEDS: Aripiprazole 2 MG TAB PO SCH (21:09)
[2020-05-01] MEDS: rOPINIRole HCl 0.25 MG TAB PO SCH (23:02)
[2020-05-02] MEDS: HYDROcodone/Acetaminophen 5/325 mg Tablet PO PRN ×3 (05:32→14:44)
[2020-05-02] MEDS: Levothyroxine Sodium 50 MCG TAB PO SCH (05:34)
[2020-05-02] MEDS: Multivit, Therapeutic 1 TAB PO SCH (09:40)
[2020-05-02] MEDS: Famotidine 20 MG TAB PO SCH ×2 (09:41→21:15)
[2020-05-02] MEDS: Cyanocobalamin (Vitamin B-12) 1,000 MCG TAB PO SCH (09:41)
[2020-05-02] MEDS: Folic Acid 1 MG TAB PO SCH (09:41)
[2020-05-02] MEDS ORDERED: Cyclobenzaprine 10 MG TAB PO SCH (10:15)
[2020-05-02] MEDS: HumaLOG 300 UNITS/3 ML VIAL SC PRN ×2 (12:39→17:31)
[2020-05-02] MEDS: Cyclobenzaprine 10 MG TAB PO SCH ×2 (14:44→21:15)
[2020-05-02] MEDS: Aripiprazole 2 MG TAB PO SCH (21:15)
[2020-05-02] MEDS: rOPINIRole HCl 0.25 MG TAB PO SCH (21:15)
[2020-05-03] MEDS: HYDROcodone/Acetaminophen 5/325 mg Tablet PO PRN ×3 (05:47→20:43)
[2020-05-03] MEDS: Levothyroxine Sodium 50 MCG TAB PO SCH (05:48)
[2020-05-03] MEDS: Cyclobenzaprine 10 MG TAB PO SCH ×2 (08:32→15:31)
[2020-05-03] MEDS: Folic Acid 1 MG TAB PO SCH (08:32)
[2020-05-03] MEDS: Famotidine 20 MG TAB PO SCH ×2 (08:32→20:40)
[2020-05-03] MEDS: Multivit, Therapeutic 1 TAB PO SCH (08:32)
[2020-05-03] MEDS: Cyanocobalamin (Vitamin B-12) 1,000 MCG TAB PO SCH (08:32)
[2020-05-03] MEDS: HumaLOG 300 UNITS/3 ML VIAL SC PRN (12:24)
[2020-05-03] MEDS: rOPINIRole HCl 0.25 MG TAB PO SCH (20:40)
[2020-05-03] MEDS: Aripiprazole 2 MG TAB PO SCH (20:40)
[2020-05-04] MEDS: HYDROcodone/Acetaminophen 5/325 mg Tablet PO PRN (04:43)
[2020-05-04] MEDS: Levothyroxine Sodium 50 MCG TAB PO SCH (05:09)
[2020-05-04] MEDS: Multivit, Therapeutic 1 TAB PO SCH (07:43)
[2020-05-04] MEDS: Cyanocobalamin (Vitamin B-12) 1,000 MCG TAB PO SCH (07:43)
[2020-05-04] MEDS: Famotidine 20 MG TAB PO SCH (07:43)
[2020-05-04] MEDS: Folic Acid 1 MG TAB PO SCH (07:43)
[2020-05-04] MEDS: HumaLOG 300 UNITS/3 ML VIAL SC PRN (11:32)
[2020-05-04 12:03] VITALS: TEMP 98.5
[2020-05-04 12:49] VITALS: BP 160/96
== END 2020-05-04 12:09 | disposition home or self-care (01) | DRG 880 ==
LOC: ERS 08:34 → T4-A 16:12 → OBSVTOIN 05-01 12:17 → 2SW 05-01 12:48
PROVIDERS: ADMIT Internal Medicine; ATTEND Internal Medicine
DX: F41.9 Anxiety disorder, unspecified (principal); E87.1 Hypo-osmolality and hyponatremia; Z20.822 Contact with and (suspected) exposure to COVID-19; G43.909 Migraine, unspecified, not intractable, without status migrainosus; E11.65 Type 2 diabetes mellitus with hyperglycemia; E53.8 Deficiency of other specified B group vitamins; E03.9 Hypothyroidism, unspecified; Z88.8 Allergy status to other drugs, medicaments and biological substances; Z91.040 Latex allergy status; Z79.899 Other long term (current) drug therapy; Z79.890 Hormone replacement therapy; Z79.84 Long term (current) use of oral hypoglycemic drugs
CPT/HCPCS: 36415; 36416; 70450; 70496; 70498; 70551; 70552; 71045; 72148; 80053; 81003; 82550; 82607; 82746; 83735; 84100; 84443; 84484; 84703; 85025; 87635; 93005; 93306; 93970; 96374; 96375; A9579; G0378; J1815; J1885; J2060; J2405; J3420; Q0162; Q9967; U0003; U0005

== ENCOUNTER 2020-06-17 13:06 | Outpatient (CLI) | payer OTHER | END 2020-06-17 13:07 | disposition home or self-care (01) | LOC: BICMRI 13:06 | PROVIDERS: ATTEND Nurse Practitioner Acute Care | DX: R29.898 Other symptoms and signs involving the musculoskeletal system (principal); M47.812 Spondylosis without myelopathy or radiculopathy, cervical region | CPT/HCPCS: 72156; 72157 ==

== ENCOUNTER 2020-07-10 05:02 | Inpatient (IN) | payer OTHER ==
[2020-07-10 05:39] LABS: #Eosinphils 0.1 thou/uL (0.0-0.7); #Lymphocytes 2.1 thou/uL (1.20-3.40); #Monocytes 0.3 thou/uL (0.11-0.59); #Neutrophils 4.9 thou/uL (1.40-6.50); %Basophils 0.4 % (0.0-1.0); %Eosinophils 0.7 % (0.0-10.0); %Lymphocytes 28.1 % (21.0-51.0); %Monocytes 3.7 % (0.0-10.0); %Neutrophils 67.1 % (42.0-75.0); Hemoglobin 13.5 g/dL (12.0-16.0); Mean Corpuscular HGB CONC 33.8 g/dL (32.0-36.0); Mean Corpuscular Hemoglobin 32.3 pg (27.0-31.0); Mean Corpuscular Volume 95.6 fL (78.0-98.0); Mean Platelet Volume 6.5 fL (7.4-10.4); Platelet Count 358 thou/uL (130-400); RBC Distribution Width 11.2 % (11.5-14.5); White Blood Cell (WBC) Count 7.3 thou/uL (4.8-10.8)
[2020-07-10 06:02] LABS: ALT (SGPT) 13 U/L (8-55); AST (SGOT) 13 U/L (5-34); Albumin 4.2 g/dL (3.5-5.0); Alkaline Phosphatase 47 U/L (40-110); Anion Gap 16 mmol/L (10-20); BUN (Urea Nitrogen) 14 mg/dL (7.0-18.7); Bilirubin, Total 0.7 mg/dL (0.2-1.2); Calc. Creatinine Clearance 0 mL/min (70-130); Calcium 9.1 mg/dL (7.8-10.44); Carbon Dioxide 21 mmol/L (22-29); Chloride 103 mmol/L (98-107); Globulin 3.1 g/dL (2.4-3.5); Glucose 165 mg/dL (70-105); Potassium 3.5 mmol/L (3.5-5.1); Protein, Total 7.3 g/dL (6.0-8.3); Sodium 136 mmol/L (136-145)
[2020-07-10] MEDS ORDERED: Dexamethasone 10 MG/ML VIAL ONE (07:03)
[2020-07-10] MEDS ORDERED: Ondansetron PF 4 MG/2 ML Vial ONE (07:03)
[2020-07-10 09:19] LABS: Bacteria/HPF Rare-Few HPF (None Seen); Bilirubin Negative (Negative); Blood, Urine 1+ (Negative); Clarity Clear (Clear); Glucose, Urine (Dipstick) Greater than 1000 mg/dL (Negative); Ketone, Urine Negative (Negative); Leukocyte Negative Leu/uL (Negative); Nitrite Negative (Negative); Protein, Urine (Dipstick) Negative (Neg-Trace); RBC/HPF 0-3 HPF (0-3); Specific Gravity, Urine 1.029 (1.002-1.036); Squamous Epithelial 0-3 HPF (0-3); Urobilinogen Normal mg/dL (Less than 2); WBC/HPF 0-3 HPF (0-3); pH, Urine 5.5 (5.0-9.0)
[2020-07-10 09:43] LABS: BHCG - Serum Negative (NEGATIVE); Pregs Control Background? CLEAR/WHITE (CLR/WHITE); Pregs Control Bar Appear? YES (CONTROL BAR)
[2020-07-10 10:02] LABS: Thyroid Stimulating Hormone 0.4024 uIU/mL (0.35-4.94)
[2020-07-10] MEDS ORDERED: Ondansetron PF 4 MG/2 ML Vial IVP PRN (12:47)
[2020-07-10] MEDS ORDERED: Senokot S 8.6-50 MG TAB PO PRN (12:47)
[2020-07-10] MEDS ORDERED: Dextrose 5% in Water 1,000 ML IV PRN (12:52)
[2020-07-10] MEDS ORDERED: HumaLOG 300 UNITS/3 ML VIAL SC PRN ×2 (12:52)
[2020-07-10] MEDS ORDERED: Dextrose 50% Abboject 50 ML SYRINGE SLOW IVP PRN (12:52)
[2020-07-10 13:46] LABS: SARS-CoV-2 NAA Rapid Test Not Detected (NotDetected)
[2020-07-10] MEDS: Sodium Chloride 0.9% 1,000 ML IV SCH (17:27)
[2020-07-10 17:44] VITALS: BMI 29.2
[2020-07-10] MEDS: Acetaminophen 325 MG TAB PO PRN (20:02)
[2020-07-10] MEDS: Famotidine 20 MG TAB PO SCH (20:02)
[2020-07-11] MEDS: Sodium Chloride 0.9% 1,000 ML IV SCH ×4 (00:07→20:54)
[2020-07-11 05:14] LABS: #Basophils 0.1 thou/uL (0.0-0.2); #Lymphocytes 3.7 thou/uL (1.20-3.40); #Monocytes 0.5 thou/uL (0.11-0.59); #Neutrophils 5.3 thou/uL (1.40-6.50); %Basophils 0.7 % (0.0-1.0); %Eosinophils 0.3 % (0.0-10.0); %Lymphocytes 38.8 % (21.0-51.0); %Monocytes 4.9 % (0.0-10.0); %Neutrophils 55.4 % (42.0-75.0); Hemoglobin 12.8 g/dL (12.0-16.0); Mean Corpuscular HGB CONC 35.4 g/dL (32.0-36.0); Mean Corpuscular Hemoglobin 33.5 pg (27.0-31.0); Mean Corpuscular Volume 94.8 fL (78.0-98.0); Mean Platelet Volume 6.6 fL (7.4-10.4); Platelet Count 340 thou/uL (130-400); RBC Distribution Width 11.2 % (11.5-14.5); Red Blood Cell (RBC) Count 3.81 mill/uL (4.20-5.40); White Blood Cell (WBC) Count 9.5 thou/uL (4.8-10.8)
[2020-07-11 05:42] LABS: ALT (SGPT) 10 U/L (8-55); AST (SGOT) 12 U/L (5-34); Albumin 3.8 g/dL (3.5-5.0); Alkaline Phosphatase 40 U/L (40-110); Anion Gap 14 mmol/L (10-20); BUN (Urea Nitrogen) 15 mg/dL (7.0-18.7); Bilirubin, Total 0.9 mg/dL (0.2-1.2); Calc. Creatinine Clearance 130 mL/min (70-130); Calcium 8.7 mg/dL (7.8-10.44); Carbon Dioxide 19 mmol/L (22-29); Chloride 107 mmol/L (98-107); Globulin 2.8 g/dL (2.4-3.5); Glucose 114 mg/dL (70-105); Potassium 3.8 mmol/L (3.5-5.1); Protein, Total 6.6 g/dL (6.0-8.3); Sodium 136 mmol/L (136-145)
[2020-07-11] MEDS: Famotidine 20 MG TAB PO SCH ×2 (09:09→20:53)
[2020-07-11] MEDS ORDERED: Magnevist 469MG/ML 20 ML VIAL ONE (11:06)
[2020-07-11] MEDS ORDERED: OCTAGAM 10% (10 GM/100 ML VIAL) IVPB SCH (13:15)
[2020-07-11 14:17] LABS: Free T4 (Free Thyroxine) 0.88 ng/dL (0.70-1.48)
[2020-07-11] MEDS: methylPREDNISolone 4 mg Tablet PO SCH ×2 (16:30→20:53)
[2020-07-11] MEDS: OCTAGAM 10% 30 GM in Admixture Fee 1 EACH IVPB SCH (16:30)
[2020-07-11] MEDS: rOPINIRole HCl 0.25 MG TAB PO SCH (20:52)
[2020-07-11] MEDS: Mirtazapine 30 MG Soltab PO SCH (20:52)
[2020-07-11] MEDS: Prazosin HCl 1 MG CAP PO SCH (20:52)
[2020-07-11] MEDS: traZODone HCl 50 MG TAB PO SCH (20:52)
[2020-07-11] MEDS: hydrOXYzine 25 MG TAB PO SCH (20:53)
[2020-07-12] MEDS: Sodium Chloride 0.9% 1,000 ML IV SCH ×3 (05:57→20:48)
[2020-07-12] MEDS ORDERED: Ergocalciferol 1.25 MG(50,000 UNITS) CAP PO SCH ×2 (09:00)
[2020-07-12] MEDS: Levothyroxine Sodium 50 MCG TAB PO SCH (09:10)
[2020-07-12] MEDS: methylPREDNISolone 4 mg Tablet PO SCH ×3 (09:10→17:51)
[2020-07-12] MEDS: Famotidine 20 MG TAB PO SCH ×2 (09:10→20:50)
[2020-07-12] MEDS: Empagliflozin 10 MG TAB PO SCH (09:27)
[2020-07-12] MEDS: OCTAGAM 10% 30 GM in Admixture Fee 1 EACH IVPB SCH (16:08)
[2020-07-12 16:26] LABS: Fluid, Glucose 85 mg/dL (Not Available); Fluid, Protein Less than 1.0 g/dL (Not Available)
[2020-07-12 16:48] LABS: CSF Source CSF; Clarity Clear (Clear); Tube # 4
[2020-07-12] MEDS ORDERED: Acetaminophen 500 MG TAB PO PRN (18:16)
[2020-07-12] MEDS: Mirtazapine 30 MG Soltab PO SCH (20:49)
[2020-07-12] MEDS: traZODone HCl 50 MG TAB PO SCH (20:50)
[2020-07-12] MEDS: hydrOXYzine 25 MG TAB PO SCH (20:50)
[2020-07-12] MEDS: Prazosin HCl 1 MG CAP PO SCH (20:51)
[2020-07-12] MEDS: rOPINIRole HCl 0.25 MG TAB PO SCH (20:51)
[2020-07-12] MEDS ORDERED: DAPAGLIFLOZIN PROPANEDIOL 5 MG PO SCH (21:00)
[2020-07-12] MEDS ORDERED: methylPREDNISolone 4 mg Tablet PO SCH (21:00)
[2020-07-13 05:49] LABS: #Lymphocytes 1.7 thou/uL (1.20-3.40); #Monocytes 0.3 thou/uL (0.11-0.59); #Neutrophils 4.1 thou/uL (1.40-6.50); %Basophils 0.6 % (0.0-1.0); %Eosinophils 0.4 % (0.0-10.0); %Lymphocytes 28.1 % (21.0-51.0); %Monocytes 4.6 % (0.0-10.0); %Neutrophils 66.3 % (42.0-75.0); Hemoglobin 13.9 g/dL (12.0-16.0); Mean Corpuscular HGB CONC 35.5 g/dL (32.0-36.0); Mean Corpuscular Hemoglobin 33.7 pg (27.0-31.0); Mean Corpuscular Volume 95.1 fL (78.0-98.0); Mean Platelet Volume 6.7 fL (7.4-10.4); Platelet Count 345 thou/uL (130-400); RBC Distribution Width 11.3 % (11.5-14.5); Red Blood Cell (RBC) Count 4.11 mill/uL (4.20-5.40); White Blood Cell (WBC) Count 6.2 thou/uL (4.8-10.8)
[2020-07-13 06:16] LABS: Anion Gap 11 mmol/L (10-20); BUN (Urea Nitrogen) 12 mg/dL (7.0-18.7); Calc. Creatinine Clearance 128 mL/min (70-130); Calcium 9.5 mg/dL (7.8-10.44); Carbon Dioxide 24 mmol/L (22-29); Chloride 102 mmol/L (98-107); Glucose 131 mg/dL (70-105); Potassium 4.4 mmol/L (3.5-5.1); Sodium 133 mmol/L (136-145)
[2020-07-13] MEDS: Sodium Chloride 0.9% 1,000 ML IV SCH ×3 (06:35→21:30)
[2020-07-13] MEDS: Famotidine 20 MG TAB PO SCH ×2 (09:00→20:30)
[2020-07-13] MEDS: Empagliflozin 10 MG TAB PO SCH (09:00)
[2020-07-13] MEDS: methylPREDNISolone 4 mg Tablet PO SCH ×4 (10:21→20:31)
[2020-07-13] MEDS ORDERED: PROPOFOL 200 MG/20 ML VIAL ONE (15:20)
[2020-07-13] MEDS: Levothyroxine Sodium 50 MCG TAB PO SCH (17:24)
[2020-07-13] MEDS: OCTAGAM 10% 30 GM in Admixture Fee 1 EACH IVPB SCH (17:26)
[2020-07-13] MEDS: hydrOXYzine 25 MG TAB PO SCH (20:31)
[2020-07-13] MEDS: Mirtazapine 30 MG Soltab PO SCH (20:31)
[2020-07-13] MEDS: Prazosin HCl 1 MG CAP PO SCH (20:31)
[2020-07-13] MEDS: traZODone HCl 50 MG TAB PO SCH (20:31)
[2020-07-13] MEDS: rOPINIRole HCl 0.25 MG TAB PO SCH (20:32)
[2020-07-14] MEDS: Sodium Chloride 0.9% 1,000 ML IV SCH ×2 (03:42→16:45)
[2020-07-14] MEDS: methylPREDNISolone 4 mg Tablet PO SCH ×3 (08:17→16:43)
[2020-07-14] MEDS: Empagliflozin 10 MG TAB PO SCH (08:17)
[2020-07-14] MEDS: Famotidine 20 MG TAB PO SCH ×2 (08:17→20:02)
[2020-07-14] MEDS: Levothyroxine Sodium 50 MCG TAB PO SCH (08:17)
[2020-07-14] MEDS: Acetaminophen 325 MG TAB PO PRN (08:18)
[2020-07-14] MEDS ORDERED: Ondansetron ODT 4 MG TAB PO PRN (15:01)
[2020-07-14] MEDS: hydrOXYzine 25 MG TAB PO SCH (20:01)
[2020-07-14] MEDS: rOPINIRole HCl 0.25 MG TAB PO SCH (20:02)
[2020-07-14] MEDS: Mirtazapine 30 MG Soltab PO SCH (20:02)
[2020-07-14] MEDS: traZODone HCl 50 MG TAB PO SCH (20:02)
[2020-07-14] MEDS: Prazosin HCl 1 MG CAP PO SCH (20:02)
[2020-07-15] MEDS: Sodium Chloride 0.9% 1,000 ML IV SCH ×2 (04:05→12:16)
[2020-07-15] MEDS: Levothyroxine Sodium 50 MCG TAB PO SCH (07:17)
[2020-07-15] MEDS ORDERED: methylPREDNISolone 4 mg Tablet PO SCH (08:00)
[2020-07-15] MEDS: Empagliflozin 10 MG TAB PO SCH (08:51)
[2020-07-15] MEDS: Famotidine 20 MG TAB PO SCH (08:51)
[2020-07-15 11:26] VITALS: BP 120/70; TEMP 98.1
[2020-07-16] MEDS ORDERED: methylPREDNISolone 4 mg Tablet PO SCH (08:00)
[2020-07-16 15:13] LABS: CSF IgG Index 0.2 (0.0-0.7); CSF IgG Synthesis Rate -22.7 mg/day (-9.9 TO +3.3); IgG/Alb CSF 0.13 (0.00-0.25)
== END 2020-07-15 13:30 | disposition home health service (06) | DRG 74 ==
LOC: ERS 05:02 → ERHOLD 11:03 → 2SE 17:11
PROVIDERS: ADMIT Internal Medicine; ATTEND Internal Medicine
PROC: 009U3ZX Drainage of Spinal Canal, Percutaneous Approach, Diagnostic (ICD-10-PCS; 2020-07-12)
PROC: B01B1ZZ Fluoroscopy of Spinal Cord using Low Osmolar Contrast (ICD-10-PCS; 2020-07-12)
PROC: 30233S1 Transfusion of Nonautologous Globulin into Peripheral Vein, Percutaneous Approach (ICD-10-PCS; 2020-07-12)
PROC: 0D758ZZ Dilation of Esophagus, Via Natural or Artificial Opening Endoscopic (ICD-10-PCS; principal; 2020-07-13)
DX: G60.0 Hereditary motor and sensory neuropathy (principal); G35 Multiple sclerosis; E11.9 Type 2 diabetes mellitus without complications; F41.9 Anxiety disorder, unspecified; F32.9 Major depressive disorder, single episode, unspecified; E06.3 Autoimmune thyroiditis; G43.909 Migraine, unspecified, not intractable, without status migrainosus; E53.8 Deficiency of other specified B group vitamins; Z20.822 Contact with and (suspected) exposure to COVID-19; R13.12 Dysphagia, oropharyngeal phase; Z90.89 Acquired absence of other organs; Z90.49 Acquired absence of other specified parts of digestive tract; Z98.890 Other specified postprocedural states
CPT/HCPCS: 0240U; 36415; 36416; 62270; 70553; 74220; 80048; 80053; 81003; 81015; 82040; 82042; 82533; 82784; 82945; 83519; 83916; 84157; 84439; 84443; 84484; 84703; 85025; 85652; 86140; 87070; 87086; 87205; 89051; 93005; A9579; J1100; J1568; J2405; J2704; J7509; Q0162

== ENCOUNTER 2020-08-28 21:27 | Emergency (ER) | payer OTHER ==
[2020-08-28 21:56] LABS: #Basophils 0.1 thou/uL (0.0-0.2); #Eosinphils 0.1 thou/uL (0.0-0.7); #Lymphocytes 3.5 thou/uL (1.20-3.40); #Monocytes 0.4 thou/uL (0.11-0.59); #Neutrophils 3.1 thou/uL (1.40-6.50); %Basophils 1.4 % (0.0-1.0); %Eosinophils 1.3 % (0.0-10.0); %Lymphocytes 48.8 % (21.0-51.0); %Monocytes 5.3 % (0.0-10.0); %Neutrophils 43.2 % (42.0-75.0); Mean Corpuscular HGB CONC 33.5 g/dL (32.0-36.0); Mean Corpuscular Volume 98.6 fL (78.0-98.0); Mean Platelet Volume 6.7 fL (7.4-10.4); Platelet Count 359 thou/uL (130-400); RBC Distribution Width 11.4 % (11.5-14.5); Red Blood Cell (RBC) Count 4.26 mill/uL (4.20-5.40); White Blood Cell (WBC) Count 7.2 thou/uL (4.8-10.8)
[2020-08-29] MEDS ORDERED: Clindamycin 150 MG CAP ONE (00:49)
== END 2020-08-29 01:03 | disposition home or self-care (01) ==
LOC: ERS 21:27
DX: T81.41XA Infection following a procedure, superficial incisional surgical site, initial encounter (principal); L08.9 Local infection of the skin and subcutaneous tissue, unspecified; E11.9 Type 2 diabetes mellitus without complications; G43.909 Migraine, unspecified, not intractable, without status migrainosus; Z79.899 Other long term (current) drug therapy
CPT/HCPCS: 36415; 85025; 99283